=== PATIENT | male | born 1970 | race Hispanic/Latino ===

== ENCOUNTER 2022-05-27 15:25 | Inpatient (IN) | payer SELFPAY ==
--- NOTE | 2022-05-27 17:13 | RAD REPORT ---
EXAM DESCRIPTION: US - Abdomen Exam Limited - 05/27/2022 5:02 pm CLINICAL HISTORY: ABD PAIN COMPARISON: No comparisons FINDINGS: The gallbladder demonstrates gallstone and extensive gall sludge. Gallbladder wall is thic kened to 7 mm and edematous. The common bile duct is normal measuring 4 mm. The liver demonstrates no findings of intrahepatic biliary dilatation. IMPRESSION: Findings are suspicious for acute cholecystitis.
[2022-05-27 17:57] LABS: Absolute Lymphocytes (CBC) 1.8 K/uL (0.7-4.9); Hematocrit 43.3 % (39.6-49.0); Lymphocytes % 11.6 % (15.3-44.8); MCV 90.3 fL (80-100); MPV 8.1 fL (7.6-11.3); RBC Red Blood Cell Count 4.79 M/uL (4.33-5.43)
[2022-05-27] MEDS ORDERED: NA CHLORIDE 0.9% 1,000 ML ONE (18:03)
[2022-05-27] MEDS ORDERED: CEFOXITIN SODIUM 1 GM/VIAL ONE (18:03)
[2022-05-27] MEDS ORDERED: MEPERIDINE HCL 25 MG/ML SYR ONE (18:03)
[2022-05-27] MEDS ORDERED: NA CHLORIDE 0.9% 100 ML ONE (18:06)
[2022-05-27 18:15] LABS: Albumin 3.9 g/dL (3.4-5.0); Bilirubin Total 1.6 mg/dL (0.2-1.0); Potassium 3.8 mmol/L (3.5-5.1); Protein, Total 8.7 g/dL (6.4-8.2)
[2022-05-27 18:24] LABS: SARS-CoV-2 Antigen Rapid Res Negative (Negative)
--- NOTE | 2022-05-27 18:40 | ER ---
Nurse's Notes [facility] Name: Canelo Lyons Age: 51 yrs Sex: Male : 1970 Arrival Date: 05/27/2022 Time: 15:29 Bed 20 Private MD: Diagnosis: Acute cholecystitis Presentation: 05/27 16:28 Chief complaint: Patient states: Pt reports RUQ abdominal pain x4 days. Denies N/V. kb3 Nothing makes pain better or worse. Coronavirus screen: Vaccine status: Patient reports being unvaccinated. Client denies travel out of the [place] in the last 14 days. At this time, the client does not indicate any symptoms associated with coronavirus-19. Ebola Screen: Patient negative for fever greater than or equal to 101.5 degrees Fahrenheit, and additional compatible Ebola Virus Disease symptoms Patient denies exposure to infectious person. Patient denies travel to an Ebola-affected area in the 21 days before illness onset. No symptoms or risks identified at this time. Initial Sepsis Screen: Does the patient meet any 2 criteria? No. Patient's initial sepsis screen is negative. Does the patient have a suspected source of infection? No. Patient's initial sepsis screen is negative. Risk Assessment: Do you want to hurt yourself or someone else? Patient reports no desire to harm self or others. Onset of symptoms was May 23, 2022. 16:28 Method Of Arrival: Ambulatory 3 16:28 Acuity: YASEMIN 3 kb3 Triage Assessment: 16:29 General: Appears in no apparent distress. uncomfortable, Behavior is calm, cooperative. kb3 Pain: Complains of pain in right upper quadrant Pain does not radiate. Pain currently is 8 out of 10 on a pain scale. Quality of pain is described as burning, Pain began 4 days ago Is continuous. GI: Abdomen is flat, non-distended, Bowel sounds present X 4 quads. Abd is soft Abdomen is tender to palpation in right upper quadrant. Historical: - Allergies: 16:29 No Known Allergies; kb3 - Home Meds: 16:29 None [Active]; kb3 - PMHx: 16:29 None; kb3 - PSHx: 16:29 None; kb3 - Immunization history:: Adult Immunizations up to date, Client reports receiving the 2nd dose of the Covid vaccine, Last tetanus immunization: unknown. - Social history:: Smoking status: Patient denies any tobacco usage or history of. Patient uses alcohol, only on a social basis. Patient/guardian denies using street drugs. Screenin:19 Abuse screen: Denies threats or abuse. Nutritional screening: No deficits noted. bm7 Tuberculosis screening: No symptoms or risk factors identified. Fall Risk None identified. Assessment: 19:03 Reassessment: Patient and/or family updated on plan of care and expected duration. Pain bm7 level reassessed. Patient is alert, oriented x 3, equal unlabored respirations, skin warm/dry/pink. 20:19 Reassessment: Patient and/or family updated on plan of care and expected duration. Pain bm7 level reassessed. Patient is alert, oriented x 3, equal unlabored respirations, skin warm/dry/pink. 05/28 09:11 Reassessment: report given to Zarina HENDERSON; pt transported to OR via wheelchair. vg1 Vital Signs: 05/27 16:28 BP 126 / 86; Pulse 82; Resp 18; Temp 97.9; Pulse Ox 97% ; Weight 79.38 kg; Height 5 ft. kb3 8 in. (172.72 cm); Pain 7/10; 18:08 BP 132 / 79; Pulse 79; Resp 16; Pulse Ox 100% on R/A; Pain 7/10; bm7 19:02 BP 127 / 68; Pulse 80; Resp 16; Pulse Ox 98% on R/A; Pain 3/10; bm7 20:19 BP 130 / 79; Pulse 72; Resp 16; Pulse Ox 99% on R/A; Pain 0/10; bm7 16:28 Body Mass Index 26.61 (79.38 kg, 172.72 cm) kb3 ED Course: 15:29 Patient arrived in ED. rg4 16:29 Triage completed. kb3 16:29 Arm band placed on left wrist. kb3 17:04 US Abdomen Limited In Process Unspecified. EDMS 17:14 Sandy Means FNP-C is PHCP. snw 17:14 Orlando Mortensen MD is Attending Physician. snw 17:48 Socorro Hickey, RN is Primary Nurse. bm7 17:51 Initial lab(s) drawn, by me, sent to lab. COVID swab sent to lab. Inserted saline lock: dh3 20 gauge in right antecubital area, using aseptic technique. Blood collected. 18:40 Napoleon Sexton MD is Hospitalizing Provider. snw 18:56 Hospitalizing Provider role handed off by Napoleon Sexton MD snw 18:56 Jean Kim is Hospitalizing Provider. snw 20:19 No apparent distress. Resting quietly. Awaiting bed assignment. bm7 20:19 Patient has correct armband on for positive identification. Call light in reach. Side bm7 rails up X 1. Client placed on continuous cardiac and pulse oximetry monitoring. NIBP monitoring applied. Door closed. Noise minimized. Warm blanket given. Assisted to bathroom. 20:19 No provider procedures requiring assistance completed. bm7 21:00 Patient admitted, IV remains in place. hb Administered Medications: 18:07 Drug: NS 0.9% 1000 ml Route: IV; Rate: 1 bolus; Site: right antecubital; bm7 19:03 Follow up: IV Status: Completed infusion; IV Intake: 1000ml bm7 18:08 Drug: Demerol (meperidine) 12.5 mg Route: IVP; Site: right antecubital; bm7 19:03 Follow up: Response: Pain is decreased bm7 18:56 Drug: Mefoxin (cefOXitin) 1 grams Route: IVPB; Infused Over: 30 mins; Site: right bm7 antecubital; 20:20 Follow up: IV Status: Completed infusion bm7 Medication: 20:19 VIS not applicable for this client. bm7 Intake: 19:03 IV: 1000ml; Total: 1000ml. bm7 Outcome: 18:40 Decision to Hospitalize by Provider. snw 21:00 Admitted to ER Hold. Please see [facility] for further documentation. hb 21:00 Condition: stable 21:00 Instructed on the need for admit, Demonstrated understanding of instructions. 05/28 09:18 Patient left the ED. vg1 Signatures: Dispatcher [employer] EDMS Sandy Means FNP-C DIRECTOR OF MIDWIFERY/STAFF MIDWIFE-Csnw Tracy Garcia, RN RN Aditi Omer 4 Jahaira Armas 3 January Omer RN RN vg1 Socorro Hickey, RN RN bm7 Marilu Leiva RN RN kb3
--- NOTE | 2022-05-27 18:40 | EDPHYS ---
Physician Documentation [facility] Name: Canelo Lyons Age: 51 yrs Sex: Male : 1970 Arrival Date: 05/27/2022 Time: 15:29 Bed 20 Private MD: ALESIA Physician Orlando Mortensen HPI: 05/27 17:46 This 51 yrs old Male presents to ER via Ambulatory with complaints of snw Abdominal Pain. 17:46 The patient presents with abdominal pain in the right upper quadrant. Onset: The snw symptoms/episode began/occurred suddenly, 1 week(s) ago, intermittent. The symptoms do not radiate. Associated signs and symptoms: none. The symptoms are described as intermittent, stabbing. Modifying factors: The symptoms are alleviated by nothing, the symptoms are aggravated by food. Severity of pain: At its worst the pain was moderate severe. The patient has experienced similar episodes in the past. The patient has not recently seen a physician. Historical: - Allergies: 16:29 No Known Allergies; kb3 - Home Meds: 16:29 None [Active]; kb3 - PMHx: 16:29 None; kb3 - PSHx: 16:29 None; kb3 - Immunization history:: Adult Immunizations up to date, Client reports receiving the 2nd dose of the Covid vaccine, Last tetanus immunization: unknown. - Social history:: Smoking status: Patient denies any tobacco usage or history of. Patient uses alcohol, only on a social basis. Patient/guardian denies using street drugs. ROS: 17:45 Eyes: Negative for injury, pain, redness, and discharge, ENT: Negative for injury, snw pain, and discharge, Neck: Negative for injury, pain, and swelling, Cardiovascular: Negative for chest pain, palpitations, and edema, Respiratory: Negative for shortness of breath, cough, wheezing, and pleuritic chest pain, Back: Negative for injury and pain, : Negative for injury, bleeding, discharge, and swelling, MS/Extremity: Negative for injury and deformity, Skin: Negative for injury, rash, and discoloration, Neuro: Negative for headache, weakness, numbness, tingling, and seizure, Psych: Negative for depression, anxiety, suicide ideation, homicidal ideation, and hallucinations. 17:45 Constitutional: Positive for body aches. 17:45 Abdomen/GI: Positive for abdominal pain, nausea, of the right upper quadrant. Exam: 17:45 Constitutional: This is a well developed, well nourished patient who is awake, alert, snw and in no acute distress. Head/Face: Normocephalic, atraumatic. Eyes: Pupils equal round and reactive to light, extra-ocular motions intact. Lids and lashes normal. Conjunctiva and sclera are non-icteric and not injected. Cornea within normal limits. Periorbital areas with no swelling, redness, or edema. ENT: Nares patent. No nasal discharge, no septal abnormalities noted. Tympanic membranes are normal and external auditory canals are clear. Oropharynx with no redness, swelling, or masses, exudates, or evidence of obstruction, uvula midline. Mucous membranes moist. Neck: Trachea midline, no thyromegaly or masses palpated, and no cervical lymphadenopathy. Supple, full range of motion without nuchal rigidity, or vertebral point tenderness. No Meningismus. Chest/axilla: Normal chest wall appearance and motion. Nontender with no deformity. No lesions are appreciated. Cardiovascular: Regular rate and rhythm with a normal S1 and S2. No gallops, murmurs, or rubs. Normal PMI, no JVD. No pulse deficits. Respiratory: Lungs have equal breath sounds bilaterally, clear to auscultation and percussion. No rales, rhonchi or wheezes noted. No increased work of breathing, no retractions or nasal flaring. Back: No spinal tenderness. No costovertebral tenderness. Full range of motion. Skin: Warm, dry with normal turgor. Normal color with no rashes, no lesions, and no evidence of cellulitis. MS/ Extremity: Pulses equal, no cyanosis. Neurovascular intact. Full, normal range of motion. Neuro: Awake and alert, GCS 15, oriented to person, place, time, and situation. Cranial nerves II-XII grossly intact. Motor strength 5/5 in all extremities. Sensory grossly intact. Cerebellar exam normal. Normal gait. Psych: Awake, alert, with orientation to person, place and time. Behavior, mood, and affect are within normal limits. 17:45 Abdomen/GI: Inspection: abdomen appears normal, Bowel sounds: normal, Palpation: moderate abdominal tenderness, in the right upper quadrant, Indicators: Woodson's sign is positive. Vital Signs: 16:28 BP 126 / 86; Pulse 82; Resp 18; Temp 97.9; Pulse Ox 97% ; Weight 79.38 kg; Height 5 ft. kb3 8 in. (172.72 cm); Pain 7/10; 18:08 BP 132 / 79; Pulse 79; Resp 16; Pulse Ox 100% on R/A; Pain 7/10; bm7 19:02 BP 127 / 68; Pulse 80; Resp 16; Pulse Ox 98% on R/A; Pain 3/10; bm7 20:19 BP 130 / 79; Pulse 72; Resp 16; Pulse Ox 99% on R/A; Pain 0/10; bm7 16:28 Body Mass Index 26.61 (79.38 kg, 172.72 cm) kb3 MDM: 17:39 Patient medically screened. [facility] 17:47 Data reviewed: vital signs, nurses notes. Counseling: I had a detailed discussion with snw the patient and/or guardian regarding: the historical points, exam findings, and any diagnostic results supporting the discharge/admit diagnosis. Physician consultation: Napoleon Sexton MD was called at 17:47, was contacted at 17:48, regarding patient's condition, + kritsy, no labs yet. will await LFTs. 18:39 Physician consultation: Napoleon Sexton MD. [facility] 18:55 Physician consultation: would like admission per Dr. Jean BRODERICK in the am. . snw 05/27 17:03 Order name: CBC with Diff; Complete Time: 18:33 snw 05/27 17:03 Order name: CMP; Complete Time: 18:33 snw 05/27 17:03 Order name: Lipase; Complete Time: 18:33 snw 05/27 17:37 Order name: SARS RAPID; Complete Time: 18:33 snw 05/27 18:53 Order name: Urine Dipstick-Ancillary; Complete Time: 18:53 EDMS 05/28 03:11 Order name: CBC with Automated Diff; Complete Time: 22:11 EDMS 05/27 16:45 Order name: US Abdomen Limited; Complete Time: 17:15 snw 05/28 03:21 Order name: Basic Metabolic Panel; Complete Time: 22:11 EDMS 05/28 03:21 Order name: Liver (Hepatic) Function; Complete Time: 22:11 EDMS 05/28 03:21 Order name: Lipase; Complete Time: 22:11 EDMS 08 08:44 Order name: MRI; Complete Time: 22:11 EDMS 05/27 17:03 Order name: IV Saline Lock; Complete Time: 17:55 snw 05/27 17:03 Order name: Labs collected and sent; Complete Time: 17:55 snw Administered Medications: 18:07 Drug: NS 0.9% 1000 ml Route: IV; Rate: 1 bolus; Site: right antecubital; 7 19:03 Follow up: IV Status: Completed infusion; IV Intake: 1000ml [facility] 18:08 Drug: Demerol (meperidine) 12.5 mg Route: IVP; Site: right antecubital; 7 19:03 Follow up: Response: Pain is decreased 7 18:56 Drug: Mefoxin (cefOXitin) 1 grams Route: IVPB; Infused Over: 30 mins; Site: right bm7 antecubital; 20:20 Follow up: IV Status: Completed infusion 7 Disposition Summary: 05/27/22 18:40 Hospitalization Ordered Hospitalization Status: Inpatient Admission snw Condition: Stable snw Problem: new snw Symptoms: are unchanged snw Bed/Room Type: Standard snw Provider: Jean Kim(05/27/22 18:57) snw Location: [facility] ER HOLD(05/27/22 20:01) dw Room Assignment: ERHOLD-(05/27/22 20:01) dw Diagnosis - Acute cholecystitis snw Forms: - Medication Reconciliation Form snw - SBAR form snw Signatures: Dispatcher [employer] Argentina Fernandez RN RN Orlando Matias MD MD cha Waters, Shelly, CUSTOMER CONSULTANT-C CUSTOMER CONSULTANT-Csnw Socorro Hickey RN RN bm7 Marilu Leiva, RN RN kb3 Corrections: (The following items were deleted from the chart) 18:57 18:40 Napoleon Sexton snw snw 20:01 18:40 Telemetry/MedSurg (Inpatient) snw dw 20:01 18:40 snw dw
[2022-05-27 18:52] LABS: Urine Blood 2+ (Negative); Urine Glucose Negative (Negative); Urine Protein Negative (Negative)
--- NOTE | 2022-05-27 20:49 | P.HP ---
Certification for Inpatient Patient admitted to: Observation With expected LOS: <2 Midnights Patient will require the following post-hospital care: None Practitioner: I am a practitioner with admitting privileges, knowledge of patient current condition, hospital course, and medical plan of care. Services: Services provided to patient in accordance with Admission requirements found in Title 42 Section 412.3 of the Code of Federal Regulations Patient History Date of Service: 05/27/22 Reason for admission: Acute cholecystitis History of Present Illness: 51-year-old male with no significant past medical history presents to the emergency department for 4 days of right upper quadrant abdominal pain. He was evaluated in the emergency department his labs were significant for leukocytosis with white blood cell count of 15.5 mildly elevated T bili 1.6 ultrasound shows gallbladder wall thickening with edema CBD normal measuring 4 mm findings suspicious for acute cholecystitis. ED provider discussed case with general surgery who wishes for patient to be admitted to the hospitalist service with order for MRCP to be performed in the morning - Past Medical/Surgical History -: None -: None Psychosocial/ Personal History: Patient was at home with his family - Family History Family History: Reviewed- Non-Contributory - Social History Smoking Status: Never smoker Alcohol use: No CD- Drugs: No Caffeine use: Yes Place of Residence: Home Review of Systems 10-point ROS is otherwise unremarkable Gastrointestinal: Nausea, Abdominal Pain Physical Examination - Physical Exam General: Alert, In no apparent distress, Oriented x3 HEENT: Atraumatic, PERRLA, Mucous membr. moist/pink, EOMI, Sclerae nonicteric Neck: Supple, 2+ carotid pulse no bruit, No LAD, Without JVD or thyroid abnormality Respiratory: Clear to auscultation bilaterally, Normal air movement Cardiovascular: Regular rate/rhythm, Normal S1 S2 Capillary refill: <2 Seconds Gastrointestinal: Normal bowel sounds, No masses, No rebound, No guarding, Tende rness (Moderate right upper quadrant tenderness) Musculoskeletal: No tenderness Integumentary: No rashes Neurological: Normal speech, Normal strength at 5/5 x4 extr, Normal tone, Normal affect - Studies Laboratory Data (last 24 hrs) 05/27/22 17:51: Sodium 136, Potassium 3.8, BUN 8, Creatinine 0.87, Glucose 117 H, Total Bilirubin 1.6 H, AST 20, ALT 28, Alkaline Phosphatase 86, Lipase 65 L 05/27/22 17:51: WBC 15.5 H, Hgb 14.9, Hct 43.3, Plt Count 194 Assessment and Plan - Plan Assessment: Acute cholecystitis Plan: Acute cholecystitis: N.p.o., IVF, IV antibiotics, as needed pain medications and antiemetics, surgical consult in place. MRCP pending to rule out choledocholithiasis. Appreciate further input from general surgery. DVT PPX: SCD Code status: Full Discharge Plan: Home Plan to discharge in: 24 Hours - Advance Directives Does patient have a Living Will: No Does patient have a Durable POA for Healthcare: No - Code Status/Comfort Care Code Status Assessed: Yes (Full code) Critical Care: No Time Spent Managing Pts Care (In Minutes): 70
[2022-05-27] MEDS ORDERED: MORPHINE 4 MG/ML SYR IV PRN (20:51)
[2022-05-27] MEDS ORDERED: ACETAMINOPHEN 500 MG TAB PO PRN (20:51)
[2022-05-27] MEDS: D5 0.45 NS 1,000 ML IV SCH (20:51)
[2022-05-27] MEDS ORDERED: ONDANSETRON 4 MG/2 ML VIAL IV PRN (20:51)
[2022-05-27] MEDS ORDERED: D5 0.45 NS 1,000 ML IV ONE (21:27)
[2022-05-27 23:04] VITALS: BMI 26.2
[2022-05-28] MEDS ORDERED: CEFOXITIN SODIUM 1 GM/VIAL ONE ×3 (00:24→13:22)
[2022-05-28] MEDS ORDERED: NA CHLORIDE 0.9% 50 ML ONE ×2 (00:24→06:20)
[2022-05-28 03:06] LABS: Absolute Lymphocytes (CBC) 1.9 K/uL (0.7-4.9); Lymphocytes % 17.4 % (15.3-44.8); MCV 89.4 fL (80-100); MPV 8.3 fL (7.6-11.3); RBC Red Blood Cell Count 4.02 M/uL (4.33-5.43)
[2022-05-28 03:19] LABS: Bilirubin Direct 0.4 mg/dL (0-0.2); Potassium 3.7 mmol/L (3.5-5.1); Protein, Total 7.1 g/dL (6.4-8.2)
[2022-05-28] MEDS: D5 0.45 NS 1,000 ML IV SCH ×4 (04:51→23:55)
[2022-05-28] MEDS: CEFOXITIN 1 GM in NA CHLORIDE 0.9% 50 ML IVPB SCH ×6 (06:00→23:56)
[2022-05-28] MEDS ORDERED: D5 0.45 NS 1,000 ML IV ONE (06:20)
--- NOTE | 2022-05-28 08:43 | RAD REPORT ---
EXAM DESCRIPTION: MRI - Cholangiogram - 05/28/2022 8:03 am CLINICAL HISTORY: bile duct eval Abdominal pain COMPARISON: No comparisons FINDINGS: Three-dimensional MRCP was performed using maximum intensity projection reconstruction on the same work station. No intrahepatic biliary tree dilatation is seen. The common bile duct is normal caliber without evide nce of retained stone, stricture or mass. The pancreatic duct is not pathologically dilated. Significantly distended gallbladder with surrounding inflammation. The gallbladder contains a large s tone. There is pericholecystic fluid and gallbladder wall thickening present. Trace free fluid is seen in the upper abdomen. No additional solid organ abnormality. IMPRESSION: Acute cholecystitis suspected. No significant common bile duct abnormality.
[2022-05-28] MEDS ORDERED: Ringers Lactate 1,000 ML IV ONE (09:24)
[2022-05-28] MEDS ORDERED: FENTANYL CITR 250 MCG/5 ML ONE (09:41)
[2022-05-28] MEDS ORDERED: propofoL 200 MG/20 ML VIAL IV ONE (09:41)
[2022-05-28] MEDS ORDERED: MIDAZOLAM HCL 2 MG/2 ML INJ ONE (09:41)
[2022-05-28] MEDS ORDERED: ROCURONIUM 50 MG/5 ML VIAL IV ONE (09:41)
[2022-05-28] MEDS ORDERED: LIDOCAINE 1% MPF 5 ML VIAL ONE (09:41)
[2022-05-28] MEDS ORDERED: CELECOXIB 100 MG CAPSULE ONE (09:50)
[2022-05-28] MEDS ORDERED: ACETAMINOPHEN 500 MG TAB ONE (09:50)
[2022-05-28] MEDS ORDERED: SUCCINYLCHOLINE 20 MG/ML (10 ML) IV ONE (10:42)
--- NOTE | 2022-05-28 11:27 | CON ---
Date of Consultation: 05/28/2022 Diagnoses: Acute cholecystitis, symptomatic cholelithiasis. History Of Present Illness: This is the case of a male, who comes to us with epigastric right upper quadrant pain radiating to the back since last Saturday about 3 days ago. He thought it was just a sto mach issue, so he was taking some antacid and eating more to see that take away his pain, but today h e just could not use that anymore and it get better, so he came to the ER, diagnosed with swelling of gallbladder and LFT mildly elevated. A surgical consult was obtained for cholecystectomy. Past Medical History: None. Allergies: NONE. Social History: He does not smoke. He does not drink alcohol . Family History: Noncontributory. Review of Systems: Nausea, vomiting, abdominal pain. No dysuria, hematuria, hematochezia, or melena. No jaundice. Physical Examination: General: The patient is awake, alert. HEENT: Pupils are equal and reactive. Anicteric. Neck: Supple. Chest: Clear. Abdomen: Epigastric right upper quadrant pain with Woodson sign positive. Rectal: Deferred. Extremities: Good capillary refill. Neurologic: Cranial nerves 2 through 12 grossly normal limits. Laboratory Data: Blood work shows WBC count of 15.5, hemoglobin of 14.9, and platelets of 194 with a glucose of 117. Total bilirubin is 2.0, AST 39, ALT 40. Ultrasound of the abdomen shows gallstones , extensive gallbladder sludge, gallbladder wall thickening and edematous consistent with acute kristy cystitis and symptomatic cholelithiasis. The patient had an MRCP done due to LFTs elevation and MRCP interpreted by Dr. Thao shows once again the finding of acute cholecystitis with gallbladder wall st ones, pericholecystic fluid, gallbladder wall thickening with surrounding of the tissue around the ga llbladder. The common bile duct is normal caliber with no stone seen. Assessment: It is a 51-year-old patient, 4 days getting worse with acute cholecystitis, gallbladder wall edema, pericholecystic fluid surrounding tissue with inflammation too. So, he has an option of laparoscopic possible open cholecystectomy with benefits, alternatives, and risks including, but not limited to infection, bleeding, damage to adjacent structures, anesthesia complication, choledocholit hiasis, bile leak, pancreatitis, WA, and even . He also understands this may not relieve any sy mptoms. He might need more than one surgical intervention. He understood, signed a consent. This w as explained to him in Mongolian and Lao. CARLY Voice ID: [id number] Report ID: [id number]
[2022-05-28] MEDS ORDERED: dexAMETHasone 10 MG/ML VIAL ONE (11:47)
[2022-05-28] MEDS ORDERED: ONDANSETRON 4 MG/2 ML VIAL ONE (11:48)
[2022-05-28] MEDS ORDERED: NEOSTIGMINE 1 MG/ML -10 ML VIAL ONE (11:48)
[2022-05-28] MEDS ORDERED: GLYCOPYRROLATE 0.2 MG/ML SYR ONE (11:48)
[2022-05-28] MEDS ORDERED: KETOROLAC 30 MG/ML INJ ONE (11:48)
--- NOTE | 2022-05-28 11:50 | P.BOP ---
Preoperative diagnosis: acute cholecystitis, symptomatic cholelithiasis Postoperative diagnosis: same, umbilical hernia Primary procedure: 1. Laparoscopic cholecystectomy Secondary procedure: 2. open umbilical hernia repair Chart Calculator: Vannesa Hughes ([place]) Estimated blood loss: <20cc Specimen: GB, hernia sac Findings: as above Anesthesia: General Complications: None Drain(s): RIN drain Transferred to: Recovery Room Condition: Good
[2022-05-28] MEDS ORDERED: MORPHINE 2 MG/ML SYR IV PRN (11:52)
[2022-05-28 13:37] VITALS: O2SAT 98
[2022-05-28] MEDS: HYDROCODONE/APAP 5/325 MG TAB PO PRN (15:30)
--- NOTE | 2022-05-28 16:28 | P.PN ---
Subjective Date of Service: 05/28/22 Chief Complaint: Acute cholecystitis Status post lap cholecystectomy today. Physical Examination - Vital Signs Temperature: 97.4 F Blood Pressure: 115/69 Pulse: 66 Respirations: 14 Pulse Ox (%): 97 - Studies Laboratory Data (last 24 hrs) 05/27/22 17:51: Sodium 136, Potassium 3.8, BUN 8, Creatinine 0.87, Glucose 117 H, Total Bilirubin 1.6 H, AST 20, ALT 28, Alkaline Phosphatase 86, Lipase 65 L 05/27/22 17:51: WBC 15.5 H, Hgb 14.9, Hct 43.3, Plt Count 194 Assessment And Plan - Current Problems (Diagnosis) (1) Acute cholecystitis due to biliary calculus Current Visit: Yes Status: Acute (2) Leukocytosis Current Visit: Yes Status: Acute (3) Hyperbilirubinemia Current Visit: Yes Status: Acute - Plan MRCP complaint acute cholecystitis without any CBD stone. Status post lap cholecystectomy. Umbilical hernia also repaired. Leukocytosis resolved. Monitor overnight. Monitor LFT Possible discharge in am.
--- NOTE | 2022-05-28 22:24 | OP ---
Date of Procedure: 05/28/2022 Surgeon: Napoleon Sexton MD Workers' Compensation Hearings Officer: Vannesa Morrow. Preoperative Diagnoses: Acute abdominal pain, acute cholecystitis, and symptomatic cholelithiasis. Postoperative Diagnoses: Acute abdominal pain, acute cholecystitis, and symptomatic cholelithiasis p makenna umbilical hernia. Procedure: Laparoscopic cholecystectomy and open umbilical hernia repair. Estimated Blood Loss: Less than 20 cc. Specimen: Hernia sac and gallbladder. Findings: Acute edematous distended gallbladder and an umbilical hernia with incarcerated omentum. Drains: RIN #10. Indication: This is the case of a 51-year-old patient, who comes to us with acute abdominal pain, Mu rphy sign positive peritonitis due to an acute cholecystitis. The benefits, alternatives, and risks of laparoscopic possible open cholecystectomy were fully explained, which include, but not limited to , infection, bleeding, damage to adjacent structures, anesthesia complication, choledocholithiasis, b ile leak, pancreatitis, NC, and even . He also understands this may not relieve any symptoms. He might need more than one surgical intervention. He understood and signed a consent. Description Of Procedure: The patient was brought to the operating room and placed in supine positio n. Anesthesia was done without complication. Abdominal area was prepped and draped in a sterile fas hion. Marcaine 0.5% was injected for local anesthetic followed by sharp incision of the skin in the infraumbilical region. Incision was carried down to fascia, which was opened under direct vision. P eritoneum was encountered, opened under direct vision. We noticed the patient to have an umbilical h ernia and umbilical sac had to be removed. The incision was extended to include the new incision and umbilical hernia opening. Vicryl #1 was placed inside the fascia. Jessica trocar was carefully intr oduced. No bleeding was obtained. I placed 3 more trocars under direct visualization in the right u pper quadrant, 5 mm each one of them. This allowed me to visualize a distended gallbladder with omen riki adhesions to it. Carefully, the omental adhesions were removed. Then, we placed an Endo needle in the middle of the fundus of the gallbladder under direct visualization to aspirate in order for us to continue the surgery. A grasper was placed in that area. Needle was removed under direct visual ization once again. At that moment, I proceeded to put a grasper in the fundus of the gallbladder an d another grasper in the infundibulum, retracting the gallbladder in the inferolateral fashion exposi ng the triangle of Calot, obtaining critical view. Cystic duct and cystic artery were clearly isolat ed and freed circumferentially and a connection between those and the gallbladder were clearly identi fied. I proceeded to ligate those with at least 3 clips proximal, 1 clip distal, ligation in middle. Same was done with the cystic artery. No bile leak. No bleeding. The gallbladder was removed fro m liver using Bovie cauterizer and removed from abdominal cavity using EndoCatch through umbilical in cision. The area was inspected once again. There was a lot of inflammation of that area to leave a RIN drain there exiting through one of the trocar sites and secured that in place with 3-0 nylon. The RIN drain was left in the right upper quadrant. After ensuring hemostasis, we proceeded in the irrig ation and making sure the nakul are okay with no leakage. No bleeding. I proceeded to remove the trocars under direct vision, deflated pneumoperitoneum. I have to mention to get this gallbladder th at was so inflamed and the stone was so vague that the umbilical incision had to be extended, which r equired now more a repair. We repaired the umbilical hernia and incision from the gallbladder with V icryl #1 in a [id number] fashion multiple times. The area was irrigated. Subcutaneous tissue w as closed with 3-0 chromic and skin with nakul. Sponge count and instrument counts were correct. The patient tolerated the procedure well. The patient was sent to [facility] in stable condition. JANUSZ/ANNA MARIE Voice ID: [id number] Report ID: [id number]
[2022-05-29] MEDS: D5 0.45 NS 1,000 ML IV SCH (04:51)
[2022-05-29 05:52] LABS: Absolute Lymphocytes (CBC) 1.4 K/uL (0.7-4.9); Hematocrit 36.2 % (39.6-49.0); Lymphocytes % 15.3 % (15.3-44.8); MCV 89.3 fL (80-100); MPV 8.4 fL (7.6-11.3); RBC Red Blood Cell Count 4.05 M/uL (4.33-5.43)
[2022-05-29 06:05] LABS: Albumin 2.7 g/dL (3.4-5.0); Bilirubin Total 0.7 mg/dL (0.2-1.0); Potassium 3.8 mmol/L (3.5-5.1); Protein, Total 6.9 g/dL (6.4-8.2)
[2022-05-29] MEDS: CEFOXITIN 1 GM in NA CHLORIDE 0.9% 50 ML IVPB SCH (06:06)
--- NOTE | 2022-05-29 08:12 | P.DS ---
Admission Date: 05/27/22 Discharge Date: 05/29/22 Disposition: ROUTINE DISCHARGE Discharge Condition: GOOD Reason for Admission: Acute cholecystitis Consultations: General Surgery - Dr. Sexton Brief History of Present Illness: 51yo M, no significant PMH Presented to ED due to 4 days of RUQ pain. Found to have leukocytosis and hyperbilirubinemia. U/S revealed gallbladder wall thickening with edema sarita rning for acute cholecystitis. Hospital Course: Problem List Acute cholecystitis Umbilical hernia Patient was admitted for acute cholecystitis. MRCP was negative for stone / CBD abnormality. Patient was treated with bowel rest, empiric antibiotics, and underwent laparoscopic cholecystectomy with umbilical hernia repair with Dr. Tiffanie holley on 05/28. Patient's post-operative course was uncomplicated. His diet was advanced, which he tolerated well. He was ambulating, passing flatus, and pain was adequately controlled. He was deemed stable for discharge home. Discharged with RIN drain. Record RIN drain output and take to Dr. Sexton Follow up with Dr. Sexton this Saturday in the office, call his office to confirm appointment. Follow up with PCP within 3-5 days. Discharged with 10 days of antibiotics and a few days of pain medication. Vital Signs/Physical Exam: Temp Pulse Resp BP Pulse Ox 97.5 F 65 14 111/58 L 97 05/29/22 04:00 05/29/22 04:00 05/29/22 04:00 05/29/22 04:00 05/29/22 04:00 General: Alert, In no apparent distress, Oriented x3 HEENT: EOMI, Sclerae nonicteric Respiratory: Clear to auscultation bilaterally, Normal air movement Cardiovascular: No edema, Regular rate/rhythm Gastrointestinal: Soft and benign, Non-distended, Other (RIN drain in place), Tenderness (mild RUQ) Integumentary: No rashes, No breakdown Neurological: Normal speech, Normal strength at 5/5 x4 extr, Normal affect Laboratory Data at Discharge: WBC 9.10 K/uL (4.3-10.9) D 05/29/22 05:18 Hgb 12.9 g/dL (13.6-17.9) L 05/29/22 05:18 Hct 36.2 % (39.6-49.0) L 05/29/22 05:18 Plt Count 202 K/uL (152-406) D 05/29/22 05:18 Sodium 139 mmol/L (136-145) 05/29/22 05:18 Potassium 3.8 mmol/L (3.5-5.1) 05/29/22 05:18 BUN 6 mg/dL (7-18) L 05/29/22 05:18 Creatinine 0.87 mg/dL (0.55-1.3) 05/29/22 05:18 Glucose 132 mg/dL (74-106) H 05/29/22 05:18 Total Bilirubin 0.7 mg/dL (0.2-1.0) 05/29/22 05:18 AST 85 U/L (15-37) H 05/29/22 05:18 ALT 105 U/L (12-78) H 05/29/22 05:18 Alkaline Phosphatase 99 U/L (45-117) 05/29/22 05:18 Lipase 53 U/L (73-393) L 05/28/22 02:10 Home Medications: Ciprofloxacin HCl [Cipro] 500 mg PO BID 10 Days #20 tab 05/29/22 Hydrocodone 5/APAP 325 [Onyx 5/325*] 1 tab PO Q6H PRN #15 tab 05/29/22 metroNIDAZOLE [Flagyl] 500 mg PO Q8H 10 Days #30 tab 05/29/22 New Medications: Ciprofloxacin HCl [Cipro] 500 mg PO BID 10 Days #20 tab metroNIDAZOLE [Flagyl] 500 mg PO Q8H 10 Days #30 tab Hydrocodone 5/APAP 325 [Onyx 5/325*] 1 tab PO Q6H PRN #15 tab PRN Reason: Pain Scale 5-7 (Moderate) Physician Discharge Instructions: Patient was admitted for acute cholecystitis. MRCP was negative for stone / CBD abnormality. Patient was treated with bowel rest, empiric antibiotics, and underwent laparoscopic cholecystectomy with umbilical hernia repair with Dr. Sexton on 05/28. Patient's post-operative course was uncomplicated. His diet was advanced, which he tolerated well. He was ambulating, passing flatus, and pain was adequately controlled. He was deemed stable for discharge home. Discharged with RIN drain. Record RIN drain output and take to Dr. Sexton Follow up with Dr. Sexton this Saturday in the office, call his office to confirm appointment. Follow up with PCP within 3-5 days. Discharged with 10 days of antibiotics and a few days of pain medication. Diet: [place] Activity: Ad marycruz Followup: NONE,NONE [Primary Care Provider] - Time spent managing pt's care (in minutes): 45
[2022-05-29] MEDS: HYDROCODONE/APAP 5/325 MG TAB PO PRN (08:30)
[2022-05-29 08:59] VITALS: BP 103/62; TEMP 98.1
== END 2022-05-29 10:45 | disposition home or self-care (01) | DRG 418 ==
LOC: ER 15:25 → ERHOLD 18:44 → 2ND 05-28 13:23
PROVIDERS: ADMIT Internal Medicine; ATTEND Internal Medicine
PROC: 0WQF0ZZ Repair Abdominal Wall, Open Approach (ICD-10-PCS; 2022-05-28)
PROC: 0FT44ZZ Resection of Gallbladder, Percutaneous Endoscopic Approach (ICD-10-PCS; 2022-05-28)
PROC: 0FT44ZZ Resection of Gallbladder, Percutaneous Endoscopic Approach (ICD-10-PCS; principal; 2022-05-28 10:45)
DX: K80.00 Calculus of gallbladder with acute cholecystitis without obstruction (principal); K42.0 Umbilical hernia with obstruction, without gangrene; D72.829 Elevated white blood cell count, unspecified; E80.6 Other disorders of bilirubin metabolism; Z20.822 Contact with and (suspected) exposure to COVID-19
CPT/HCPCS: 36415; 74181; 76705; 80048; 80053; 80076; 81003; 83690; 85025; 87811; 88302; 88304; 94010; 96361; 96365; 96375; 99285; J0330; J0694; J1100; J2175; J2250; J2405; J2704; J2710; J3010; J7030; J7120; J7799